=== PATIENT | female | born 1990 ===

== ENCOUNTER 2021-03-22 11:40 | Inpatient (IN) | payer OTHER ==
[~2021-03-22] VITALS: Ht 160 cm; Wt 2.7 kg
[2021-03-22] MEDS ORDERED: PRENATAL TABLE1 EAC4 PO (13:21)
[2021-03-27] MEDS ORDERED: DOCUSATE SODIU100 MG PO (13:57)
[2021-03-27] MEDS ORDERED: IBUPROFEN600 MG PO (13:57)
== END 2021-03-27 13:59 | disposition home or self-care (01) | DRG 788 ==
LOC: LDR 11:40 → O/R 03-24 20:20 → OB/GYN 03-25 11:45
PROVIDERS: ADMIT Obstetrics & Gynecology; ATTEND Obstetrics & Gynecology
PROC: 4A1HXFZ Monitoring of Products of Conception, Cardiac Rhythm, External Approach (ICD-10-PCS; 2021-03-22)
PROC: 3E0P7VZ Introduction of Hormone into Female Reproductive, Via Natural or Artificial Opening (ICD-10-PCS; 2021-03-23)
PROC: 10907ZC Drainage of Amniotic Fluid, Therapeutic from Products of Conception, Via Natural or Artificial Opening (ICD-10-PCS; 2021-03-24)
PROC: 10D00Z1 Extraction of Products of Conception, Low, Open Approach (ICD-10-PCS; principal; 2021-03-24 18:00)
DX: O62.1 Secondary uterine inertia (principal); O13.3 Gestational [pregnancy-induced] hypertension without significant proteinuria, third trimester; Z3A.37 37 weeks gestation of pregnancy; Z37.0 Single live birth; Z20.822 Contact with and (suspected) exposure to COVID-19